=== PATIENT | female | born 1995 ===

== ENCOUNTER 2016-06-06 17:13 | Emergency (ER) | payer MEDICAID ==
[2016-06-06 17:23] VITALS: RESP 16; TEMP 98.1
--- NOTE | 2016-06-06 17:30 | ED PDOC ---
"Arrival/HPI - General Chief Complaint: Female Genitourinary Time Seen by Provider: 06/06/16 17:21 Historian: Patient - History of Present Illness Narrative History of Present Illness (Text): 06/06/16 17:30 This 21 yo female, Gravid , presents to this ED c/o vaginal bleeding x 3 days ago. Patient stated she had missed her period last month. She has a positive test x 2 weeks ago. Patient admits having a mild vaginal bleeding which last for 2 days. Patient denies vaginal bleeding today. Patient also denies pelvic pain, vaginal discharge, sob, cp, abdominal pain, trauma, n/v, or dizziness. Time/Duration: Other (See HPI) Context: Home Past Medical History - Provider Review Nursing Documentation Reviewed: Yes - Infectious Disease Hx of Infectious Diseases: None - Reproductive Menopause: No - Psychiatric Hx Substance Use: No - Anesthesia Hx Anesthesia: No Family/Social History - Physician Review Nursing Documentation Reviewed: Yes Family/Social History: No Known Family HX Smoking Status: Unknown If Ever Smoked Hx Alcohol Use: No Hx Substance Use: No Allergies/Home Meds Allergies/Adverse Reactions: Allergies jere Allergy (Verified 02/26/16 13:57) RASH mushroom Allergy (Verified 02/26/16 13:57) RASH Review of Systems - Review of Systems Constitutional: Normal. absent: Fatigue, Weight Change, Fevers Eyes: Normal ENT: Normal Respiratory: Normal Cardiovascular: Normal Gastrointestinal: Normal Genitourinary Female: Vaginal Bleeding, Other (See HPI). absent: Dysuria, Frequency, Hematuria, Vaginal Discharge Musculoskeletal: Normal Skin: Normal Neurological: Normal Endocrine: Normal Hemo/Lymphatic: Normal Psychiatric: Normal Physical Exam Vital Signs Temp Pulse Resp BP Pulse Ox 06/06/16 20:28 85 16 110/65 100 06/06/16 19:14 81 16 106/55 L 100 06/06/16 17:18 98.1 F 102 H 16 117/82 99 Temperature: Afebrile Blood Pressure: Normal Pulse: Regular Respiratory Rate: Tachypneic Appearance: Positive for: Well-Appearing, Non-Toxic, Comfortable Pain Distress: None Mental Status: Positive for: Alert and Oriented X 3 - Systems Exam Head: Present: Atraumatic, Normocephalic Pupils: Present: PERRL Extroacular Muscles: Present: EOMI Conjunctiva: Present: Normal Mouth: Present: Moist Mucous Membranes Neck: Present: Normal Range of Motion. No: Meningeal Signs Respiratory/Chest: Present: Clear to Auscultation, Good Air Exchange. No: Respiratory Distress, Accessory Muscle Use, Rales, Retracting, Rhonchi Cardiovascular: Present: Regular Rate and Rhythm, Normal S1, S2. No: Murmurs Abdomen: Present: Normal Bowel Sounds. No: Tenderness, Distention, Peritoneal Signs, Guarding Back: Present: Normal Inspection. No: CVA Tenderness, Midline Tenderness Upper Extremity: Present: Normal Inspection, Normal ROM, Neurovascularly Intact , Capillary Refill < 2s. No: Cyanosis, Edema Lower Extremity: Present: Normal Inspection, NORMAL PULSES, Normal ROM, Neurovascularly Intact, Capillary Refill < 2 s. No: Edema, CALF TENDERNESS Neurological: Present: GCS=15, CN II-XII Intact, Speech Normal, Motor Func Grossly Intact, Normal Sensory Function, Normal Cerebellar Funct, Norm Deep Tendon Reflexes Skin: Present: Warm, Dry, Normal Color. No: Rashes Psychiatric: Present: Alert, Oriented x 3 Medical Decision Making ED Course and Treatment: 06/06/16 20:16 Re-evaluation. Patient feels better. Discussed results and plan with patient who expresses understanding. All questions answered and there is agreement with the plan to discharge home with instructions. Patient stable for discharge. Return if symptoms persist or worsen. Abdomen is soft, nt/nd. Blood type is O positive. Patient was recommended to f /u Dr. Ward, [employer] for repeat Beta Quant in 2 days. I spoke with Lorie Sandoval [employer], who stated patient has an appointment to see her Next week, and she will need to see her then. She said if blood type is negative, patient may nee Rhogam, otherwise, she could be d/c home. Re-evaluation Time: 20:20 Reassessment Condition: Re-examined, Improved - Lab Interpretations Lab Results: 06/06/16 15:45 06/06/16 15:45 Lab Results 06/06/16 19:45: Urine HCG, Qual Negative 06/06/16 15:45: WBC 8.0, RBC 4.40, Hgb 14.7, Hct 41.9, MCV 95.2, MCH 33.4, MCHC 35.1, RDW 12.0, Plt Count 277, MPV 10.1, Gran % 73.5 H, Lymph % (Auto) 19.3 L, [place] % (Auto) 6.6 H, Eos % (Auto) 0.2 L, Baso % (Auto) 0.4, Gran # 5.90, Lymph # 1.6, [place] # 0.5, Eos # 0.0, Baso # 0.03, Sodium 139, Potassium 3.6, Chloride 102, Carbon Dioxide 26, Anion Gap 15, BUN 9, Creatinine 0.6, Est GFR ( Amer) > 60, Est GFR (Non-Af Amer) > 60, Random Glucose 92, Calcium 9.6, Total Bilirubin 0.5, AST 28, ALT 26, Alkaline Phosphatase 60, Total Protein 8.3, Albumin 4.7, Globulin 3.5, Albumin/Globulin Ratio 1.3, Beta HCG, Quant 11.73 H, Blood Type O POSITIVE, Antibody Screen Negative, BBK History Checked No verified bt 06/06/16 15:36: Urine Color Yellow, Urine Appearance Sl cloudy, Urine pH 6.0, Ur Specific Leon[place] 1.025, Urine Protein Negative, Urine Glucose (UA) Negative, Urine Ketones 15 H, Urine Blood Small H, Urine Nitrate Negative, Urine Bilirubin Negative, Urine Urobilinogen 0.2, Ur Leukocyte Esterase Negative, Urine RBC 0 - 2, Urine WBC 0 - 2, Ur Epithelial Cells 1 - 3, Urine Bacteria Few I have reviewed the lab results: Yes Interpretation: No clinic. lab abnormalty - RAD Interpretation Narrative RAD Interpretations (Text): 06/06/16 19:23 [facility] (Former[facility]) Preliminary Radiology Report with Addendum Call: [phone] assistance Online chat: [email or web address] Patient Name: JORGE TORRES FINDINGS: Uterus: Uterus measures approximate 7.1 x 3.9 x 4.9 cm. Endometrium is not identified. No intrauterine gestation is identified. Left ovary: Ovary measures approximately 3.8 x 2.3 x 3.4 cm. There is expected blood flow on Doppler imaging. There is a small exophytic area suggestive of a small cyst Right ovary: Right ovary measures approximately 3.5 x 2 x 2.9 cm.There is expected blood flow on Doppler imaging JORGE TORRES | Preliminary Radiology Report Page 2 of 3 IMPRESSION: No intrauterine or ectopic gestation identified . EXAM: US , Transvaginal There are no prior studies for comparison. FINDINGS: Uterus: Uterus measures approximately 7 x 3 x 5 cm. Endometrium measures approximately 4.6 mm in width. There is trace fluid in the endometrial canal. There is no intrauterine gestation. Cervix is closed. Right ovary: Right ovary measures approximately 3.34 x 1.71 x 3.22 cm. There are multiple small follicles. There is expected blood flow on Doppler imaging Left ovary: Left ovary measures approximately 3.98 x 2.19 x 2.93 cm. There is a dominant follicle in left ovary.There is expected blood flow on Doppler imaging IMPRESSION: No intrauterine or ectopic gestation Correlation with serial beta-hCG levels advised to Radiology Orders: 06/06/16 17:41 OB TRANSVAGINAL [US] Stat Disposition/Present on Arrival - Present on Arrival Any Indicators Present on Arrival: No History of DVT/PE: No History of Uncontrolled Diabetes: No Urinary Catheter: No History of Decub. Ulcer: No History Surgical Site Infection Following: None - Disposition Have Diagnosis and Disposition been Completed?: Yes Diagnosis: Vaginal bleeding before 22 weeks gestation Disposition: HOME/ ROUTINE Disposition Time: 20:19 Patient Plan: Discharge Condition: GOOD Discharge Instructions (ExitCare): First Trimester Vaginal Bleed (ED) Additional Instructions: Call Dr. Ward [employer] doctor office tomorrow for follow up visit. Dr. Ward Wants to see you next week. Make sure to have repeat blood test as instructed by doctor. Return to emergency if symptoms worsen. Prescriptions: Cmb#95/Iron/FA/Dha [ + Dha Combo Pack] 1 each PO DAILY #1 combo..pkg Referrals: Jens Carr MD [Primary Care Provider] - Follow up with primary Wanda Ward MD [Medical Doctor] - Follow up with primary Forms: WORK NOTE"
[2016-06-06 17:54] LABS: URINE BILIRUBIN NEGATIVE (NEGATIVE); URINE BLOOD SMALL (NEGATIVE); URINE GLUCOSE (UA) NEGATIVE (NEGATIVE); URINE KETONE 15 mg/dL (NEGATIVE); URINE LEUKOCYTE ESTERASE NEGATIVE Leu/uL (NEGATIVE); URINE PROTEIN NEGATIVE mg/dL (<30 mg/dL); URINE UROBILINOGEN 0.2 E.U./dL (<1 E.U./dL)
[2016-06-06 18:03] LABS: URINE APPEARANCE SL CLOUDY (CLEAR); URINE COLOR YELLOW (YELLOW)
[2016-06-06 18:12] LABS: URINE BACTERIA FEW (NEG); URINE RBC 0 - 2 /hpf (0-2); URINE WBC 0 - 2 /hpf (0-6)
[2016-06-06 18:26] LABS: ADD MANUAL DIFF? NO
[2016-06-06 18:37] LABS: ALB/GLOB RATIO 1.3 (1.1-1.8); ALKALINE PHOSPHATASE 60 U/L (38-133); ALT/SGPT 26 U/L (7-56); AST/SGOT 28 U/L (15-39); BILIRUBIN,TOTAL 0.5 mg/dL (0.2-1.3); BLOOD UREA NITROGEN 9 mg/dL (7-21); CALCIUM 9.6 mg/dL (8.4-10.5); CARBON DIOXIDE 26 mmol/L (21-33); CHLORIDE 102 mmol/L (98-107); GFR AFRICAN-AMERICAN > 60; GLUCOSE,RANDOM 92 mg/dL (70-110); POTASSIUM 3.6 mmol/L (3.6-5.0); SODIUM 139 mmol/L (132-148); TOTAL PROTEIN 8.3 g/dL (5.8-8.3)
[2016-06-06 18:48] LABS: BASO # 0.03 K/mm3 (0.0-2.0); BASO % 0.4 % (0.0-3.0); EOS % 0.2 % (1.5-5.0); GRAN % 73.5 % (50.0-68.0); HEMATOCRIT 41.9 % (36.0-48.0); LYMPH # 1.6 (1.2-3.4); LYMPH % 19.3 % (22.0-35.0); MEAN CELL VOLUME 95.2 fL (80.0-105.0); MEAN CORPUSCULAR HEMOGLOBIN 33.4 pg (25.0-35.0); MEAN CORPUSCULAR HGB CONC 35.1 g/dl (31.0-37.0); MEAN PLATELET VOLUME 10.1 fl (7.0-11.0); MONO # 0.5 (0.1-0.6); MONO % 6.6 % (1.0-6.0); PLATELET COUNT 277 10^3/uL (120.0-450.0)
[2016-06-06 20:12] VITALS: O2SAT 100
[2016-06-06 20:29] VITALS: BP 110/65; PULSE 85
--- NOTE | 2016-06-07 08:33 | US ---
Indication: Vaginal bleeding Comparison: None available. Technique: Transvaginal pelvic ultrasound. Findings: The uterus measures approximately 7.1 x 3.9 x 4.9 cm. Anteverted. Endometrial thickness measures approximately 0.3 cm. Trace fluid within the endometrial canal. No evidence of intrauterine gestational sac. The right ovary measures 3.2 x 1.7 x 3.3 cm. The left ovary measures 4.0 x 2.2 x 2.9 cm. 1.2 x 1.4 x 1.5 cm left ovarian follicle/cyst. Blood flow Flow was demonstrated to both ovaries. Impression: No evidence of intrauterine gestational sac. If indeed the patient is based on serum beta HCG values, the sonographic findings represent either: Very early IUP; embryonic demise; ectopic gestation. Follow-up with serial quantitative serum beta HCG measurements and post OBGYN follow-up is mandatory, since ectopic gestation cannot be excluded based only on sonographic findings. Preliminary impression was provided by virtual radiologic.
== END 2016-06-06 20:30 | disposition home or self-care (01) ==
LOC: ED 17:13
DX: O46.90 Antepartum hemorrhage, unspecified, unspecified trimester (principal); Z3A.00 Weeks of gestation of pregnancy not specified

== ENCOUNTER 2017-09-20 23:10 | Emergency (ER) | payer MEDICAID ==
--- NOTE | 2017-09-21 00:06 | ED PDOC ---
Arrival/HPI - General Chief Complaint: Female Genitourinary Time Seen by Provider: 09/20/17 23:55 Historian: Patient - History of Present Illness Narrative History of Present Illness (Text): 09/21/17 00:002 22 year old female, with no significant past medical history, presents complaining of vaginal bleeding and abdominal cramping tonight. Patient states her last menstrual period was 08/19/17. She reports last week she had a positive test and she checked again tonight and it was negative. Patient reports she is wearing a pad and sees small clots. This is patient's first . Patient denies any fever, chills, chest pain, shortness of breath, nausea, vomiting, diarrhea, back pain, neck pain, headache, dizziness, or any other complaints. Symptom Onset: Sudden Symptom Course: Unchanged Activities at Onset: Light Context: Home Past Medical History - Provider Review Nursing Documentation Reviewed: Yes - Infectious Disease Hx of Infectious Diseases: None - Psychiatric Hx Substance Use: No - Anesthesia Hx Anesthesia: No Family/Social History - Physician Review Nursing Documentation Reviewed: Yes Family/Social History: No Known Family HX Smoking Status: Unknown If Ever Smoked Hx Alcohol Use: No Hx Substance Use: No Allergies/Home Meds Allergies/Adverse Reactions: Allergies jere Allergy (Verified 02/26/16 13:57) RASH mushroom Allergy (Verified 02/26/16 13:57) RASH Review of Systems - Physician Review All systems were reviewed & negative as marked: Yes - Review of Systems Constitutional: absent: Fevers, Other (Chills) Respiratory: absent: SOB Cardiovascular: absent: Chest Pain Gastrointestinal: Abdominal Pain (Cramping). absent: Diarrhea, Nausea, Vomiting Genitourinary Female: Vaginal Bleeding. absent: Dysuria, Frequency, Hematuria Musculoskeletal: absent: Back Pain, Neck Pain Neurological: absent: Headache, Dizziness Physical Exam Vital Signs Reviewed: Yes Vital Signs Temp Pulse Resp BP Pulse Ox 09/21/17 02:53 80 16 111/67 98 09/20/17 23:35 98.3 F 93 H 17 114/68 100 Temperature: Afebrile Blood Pressure: Normal Pulse: Regular Respiratory Rate: Normal Appearance: Positive for: Well-Appearing, Non-Toxic, Comfortable Pain Distress: None Mental Status: Positive for: Alert and Oriented X 3 - Systems Exam Head: Present: Atraumatic, Normocephalic Pupils: Present: PERRL Extroacular Muscles: Present: EOMI Conjunctiva: Present: Normal Mouth: Present: Moist Mucous Membranes Neck: Present: Normal Range of Motion Respiratory/Chest: Present: Clear to Auscultation, Good Air Exchange. No: Respiratory Distress, Accessory Muscle Use Cardiovascular: Present: Regular Rate and Rhythm, Normal S1, S2. No: Murmurs Abdomen: No: Tenderness, Distention, Peritoneal Signs Back: Present: Normal Inspection Upper Extremity: Present: Normal Inspection. No: Cyanosis, Edema Lower Extremity: Present: Normal Inspection. No: Edema Neurological: Present: GCS=15, CN II-XII Intact, Speech Normal Skin: Present: Warm, Dry, Normal Color. No: Rashes Psychiatric: Present: Alert, Oriented x 3, Normal Insight, Normal Concentration Medical Decision Making ED Course and Treatment: 09/21/17 00:01 Impression: 22 year old female presents complaining of abdominal cramping and vaginal bleeding that began tonight. Patient states she had a positive test last week and tonight it shows that its negative. Plan: -- Labs -- Urine Culture -- Urine Test -- Urinalysis -- Transvaginal US -- Reassess and disposition Prior Visits: Notes and results from previous visits were reviewed. Patient was last seen in the emergency department on 06/06/16 presents complaining of vaginal bleeding for 4 days and reports positive test 2 weeks ago. Patient was discharge. Progress Notes: EXAM: US Pelvis, Transvaginal Dictated and Authenticated by: Gregor Johnson MD 09/21/2017 3:20 AM Eastern Time IMPRESSION: 1. No intrauterine or ectopic . 2. Followup hCG level is recommended to differentiate early intrauterine gestation versus miscarriage versus currently occult ectopic . 09/21/17 03:35 On reevaluation the patient feels better and is in no acute distress. I have discussed the results and plan with the patient, who expresses understanding. Patient given the opportunity to ask question, all questions were answered and there is agreement with the plan to discharge the patient home. Patient is stable for discharge. Patient was instructed to follow up with physician or return if symptoms persist/worsen or new concerning symptoms arise. - Lab Interpretations Lab Results: 09/21/17 00:00 09/21/17 00:00 Lab Results 09/21/17 00:00: Beta HCG, Quant < 2.39 09/21/17 00:00: Sodium 145, Potassium 3.7, Chloride 104, Carbon Dioxide 26, Anion Gap 19, BUN 16, Creatinine 0.6 L, Est GFR ( Amer) > 60, Est GFR ( Non-Af Amer) > 60, Random Glucose 100, Calcium 9.3, Total Bilirubin 0.3, AST 24 , ALT 16, Alkaline Phosphatase 73, Total Protein 8.2, Albumin 4.8, Globulin 3.4 , Albumin/Globulin Ratio 1.4 09/21/17 00:00: Urine Color Light yellow, Urine Appearance Clear, Urine pH 6.0, Ur Specific [place] >= 1.030, Urine Protein Trace H, Urine Glucose (UA) Negative , Urine Ketones Trace H, Urine Blood Large H, Urine Nitrate Negative, Urine Bilirubin Negative, Urine Urobilinogen 0.2, Ur Leukocyte Esterase Small H, Urine RBC 2 - 5, Urine WBC 25 - 30, Ur Epithelial Cells 3 - 4, Urine Bacteria Mod 09/21/17 00:00: WBC 8.5, RBC 4.28, Hgb 14.2, Hct 40.1, MCV 93.7, MCH 33.2, MCHC 35.4, RDW 12.3, Plt Count 272, MPV 10.2, Gran % 73.7 H, Lymph % (Auto) 19.1 L, [place] % (Auto) 6.3 H, Eos % (Auto) 0.8 L, Baso % (Auto) 0.1, Gran # 6.28, Lymph # (Auto) 1.6, [place] # (Auto) 0.5, Eos # (Auto) 0.1, Baso # (Auto) 0.01 I have reviewed the lab results: Yes - RAD Interpretation Radiology Orders: 09/21/17 00:02 TRANSVAGINAL [US] Stat - Medication Orders Current Medication Orders: Discontinued Medications Ceftriaxone Sodium (Rocephin 1 Gram Ivpb) 1 gm in 100 mls @ 200 mls/hr IVPB STAT STA PRN Reason: Protocol Stop: 09/21/17 02:55 Last Admin: 09/21/17 02:53 Dose: 200 mls/hr eMAR Start Stop Document 09/21/17 02:53 IT (Rec: 09/21/17 02:53 IT [id number]) Intravenous Solution Start Date 09/21/17 Start Time 02:53 - Scribe Statement The provider has reviewed the documentation as recorded by the Bronson Yusuf Provider Bronson Attestation: All medical record entries made by the Scribe were at my direction and personally dictated by me. I have reviewed the chart and agree that the record accurately reflects my personal performance of the history, physical exam, medical decision making, and the department course for this patient. I have also personally directed, reviewed, and agree with the discharge instructions and disposition. Disposition/Present on Arrival - Present on Arrival Any Indicators Present on Arrival: No History of DVT/PE: No History of Uncontrolled Diabetes: No Urinary Catheter: No History of Decub. Ulcer: No History Surgical Site Infection Following: None - Disposition Have Diagnosis and Disposition been Completed?: Yes Diagnosis: UTI (urinary tract infection), Menses painful, Complete Disposition: HOME/ ROUTINE Disposition Time: 03:27 Patient Plan: Discharge Patient Problems: Current Active Problems Problem Status Onset UTI (urinary tract infection) Acute Menses painful Acute Complete Acute Condition: GOOD Discharge Instructions (ExitCare): Urinary Tract Infections in Adults, Dealing With Miscarriage, Urinary Tract Infection, Adult (DC), Miscarriage (DC) Additional Instructions: [place]- Your blood test is negative and your ultrasound shows no . You have completed the miscarrage. Follow up with your doctors next week by phone. Off work til you can see your OB Physician. [place]- Dr. Nelson Romero Prescriptions: Cephalexin [Keflex] 500 mg PO QID #40 capsule Forms: [employer] (I[place]ic)
[2017-09-21 00:32] LABS: URINE BILIRUBIN NEGATIVE (NEGATIVE); URINE BLOOD LARGE (NEGATIVE); URINE GLUCOSE (UA) NEGATIVE (NEGATIVE); URINE LEUKOCYTE ESTERASE SMALL Leu/uL (NEGATIVE); URINE PROTEIN TRACE mg/dL (<30 mg/dL); URINE UROBILINOGEN 0.2 E.U./dL (<1 E.U./dL)
[2017-09-21 00:33] LABS: URINE APPEARANCE CLEAR (CLEAR); URINE COLOR LIGHT YELLOW (YELLOW)
[2017-09-21 00:36] LABS: BASO # 0.01 K/mm3 (0.0-2.0); BASO % 0.1 % (0.0-3.0); EOS # 0.1 (0.0-0.7); EOS % 0.8 % (1.5-5.0); GRAN # 6.28 (1.4-6.5); GRAN % 73.7 % (50.0-68.0); HEMOGLOBIN 14.2 g/dL (12.0-16.0); LYMPH # 1.6 (1.2-3.4); LYMPH % 19.1 % (22.0-35.0); MEAN CELL VOLUME 93.7 fl (80.0-105.0); MEAN CORPUSCULAR HEMOGLOBIN 33.2 pg (25.0-35.0); MEAN CORPUSCULAR HGB CONC 35.4 g/dl (31.0-37.0); MEAN PLATELET VOLUME 10.2 fl (7.0-11.0); MONO # 0.5 (0.1-0.6); MONO % 6.3 % (1.0-6.0); RBC 4.28 10^6/uL (3.5-6.1); RED CELL DISTRIBUTION WIDTH 12.3 % (11.5-14.5); WHITE BLOOD COUNT 8.5 10^3/ul (4.5-11.0)
[2017-09-21 00:39] LABS: ALB/GLOB RATIO 1.4 (1.1-1.8); ALBUMIN 4.8 g/dL (3.0-4.8); ALT/SGPT 16 U/L (7-56); AST/SGOT 24 U/L (14-36); BLOOD UREA NITROGEN 16 mg/dL (7-21); CALCIUM 9.3 mg/dL (8.4-10.5); GFR AFRICAN-AMERICAN > 60; GFR NON-AFRICAN AMERICAN > 60
[2017-09-21 01:38] LABS: URINE BACTERIA MOD (NEG); URINE WBC 25 - 30 /hpf (0-6)
[2017-09-21] MEDS ORDERED: cefTRIAXone 1 gm 1 GM/100 ML BAG IVPB STA (02:26)
[2017-09-21 02:53] VITALS: RESP 16
[2017-09-21 03:39] VITALS: BP 112/78; PULSE 82; TEMP 98.2; O2SAT 99
--- NOTE | 2017-09-21 10:33 | US ---
Date of service: 09/21/2017 HISTORY: Possible Miscarriage, Test was positive COMPARISON: None available. TECHNIQUE: Transvaginal pelvic ultrasound was performed. FINDINGS: UTERUS: Measures 6.3 x 3.1 x 5.2 cm. Anteverted, normal in size and appearance. No fibroid or other mass lesion seen. ENDOMETRIUM: Measures 3.9 mm in diameter. Central endometrial complex is normal in appearance. CERVIX: No cervical abnormality identified. RIGHT OVARY: Measures 3.3 x 2.4 x 2.6 cm. No solid mass. Normal flow. Are follicles. LEFT OVARY: Measures 2.8 x 2.6 x 3.1 cm. No solid mass. Normal flow. Are follicles. FREE FLUID: No significant free fluid noted. OTHER FINDINGS: None. IMPRESSION: No evidence of intrauterine or ectopic . Follow-up beta HCG level is recommended to differentiate early intrauterine gestation versus miscarriage versus currently occult ectopic . A preliminary report was provided by [employer]
== END 2017-09-21 03:42 | disposition home or self-care (01) ==
LOC: ED 23:10
DX: O23.40 Unspecified infection of urinary tract in pregnancy, unspecified trimester (principal); O03.9 Complete or unspecified spontaneous abortion without complication; Z3A.00 Weeks of gestation of pregnancy not specified
CPT/HCPCS: 76830; 80053; 81001; 81025; 84702; 85025; 87086; 96374; 99283; J0696

== ENCOUNTER 2017-09-25 11:00 | Emergency (ER) | payer MEDICAID ==
--- NOTE | 2017-09-25 12:01 | ED PDOC ---
Arrival/HPI - General Time Seen by Provider: 09/25/17 11:57 Historian: Patient - History of Present Illness Narrative History of Present Illness (Text): 09/25/17 11:58 22 year old female, whose past medical history includes A2, who presents to the ED complaining of LLQ abdominal pain. Patient was here 6 days ago and was diagnosed with a miscarriage and UTI. Patient was discharged home with antibiotics. Patient notes yesterday the vaginal bleeding stopped but the abdominal pain continued. Patient denies any fever, nausea, vomiting, back pain , neck pain, SOB, cough, or any other complaints. Time/Duration: < week (6 days) Symptom Onset: Gradual Symptom Course: Unchanged Activities at Onset: Light Context: Home Past Medical History - Provider Review Nursing Documentation Reviewed: Yes - Infectious Disease Hx of Infectious Diseases: None - Psychiatric Hx Substance Use: No - Anesthesia Hx Anesthesia: No Family/Social History - Physician Review Nursing Documentation Reviewed: Yes Family/Social History: Unknown Family HX Smoking Status: Unknown If Ever Smoked Hx Alcohol Use: No Hx Substance Use: No Allergies/Home Meds Allergies/Adverse Reactions: Allergies jere Allergy (Verified 09/25/17 12:06) RASH mushroom Allergy (Verified 09/25/17 12:06) RASH Review of Systems - Physician Review All systems were reviewed & negative as marked: Yes - Review of Systems Constitutional: Normal Eyes: Normal ENT: Normal Respiratory: Normal. absent: SOB, Cough Cardiovascular: Normal. absent: Chest Pain Gastrointestinal: Abdominal Pain (LLQ pain). absent: Diarrhea, Nausea, Vomiting Genitourinary Female: Normal. absent: Dysuria, Frequency Musculoskeletal: Normal. absent: Back Pain, Neck Pain Skin: Normal. absent: Rash Neurological: Normal. absent: Headache, Dizziness Endocrine: Normal Hemo/Lymphatic: Normal Psychiatric: Normal Physical Exam Vital Signs Reviewed: Yes Vital Signs Temp Pulse Resp BP Pulse Ox 09/25/17 12:09 97.9 F 76 18 118/58 L 98 Temperature: Afebrile Blood Pressure: Normal Pulse: Regular Respiratory Rate: Normal Appearance: Positive for: Well-Appearing, Non-Toxic, Comfortable Pain Distress: None Mental Status: Positive for: Alert and Oriented X 3 - Systems Exam Head: Present: Atraumatic, Normocephalic Pupils: Present: PERRL Extroacular Muscles: Present: EOMI Conjunctiva: Present: Normal Mouth: Present: Moist Mucous Membranes Neck: Present: Normal Range of Motion Respiratory/Chest: Present: Clear to Auscultation, Good Air Exchange. No: Respiratory Distress, Accessory Muscle Use Cardiovascular: Present: Regular Rate and Rhythm, Normal S1, S2. No: Murmurs Abdomen: Present: Tenderness (LLQ tenderness; suprapubic region tenderness). No : Distention, Peritoneal Signs Back: Present: Normal Inspection Upper Extremity: Present: Normal Inspection. No: Cyanosis, Edema Lower Extremity: Present: Normal Inspection. No: Edema Neurological: Present: GCS=15, CN II-XII Intact, Speech Normal Skin: Present: Warm, Dry, Normal Color. No: Rashes Psychiatric: Present: Alert, Oriented x 3, Normal Insight, Normal Concentration Medical Decision Making ED Course and Treatment: 09/25/17 12:03 Impression: 22 year old female presents to the ED complaining of LLQ abdominal pain. Plan: -- Labs -- Transvaginal US -- Tylenol Progress Notes: 09/25/17 14:51 Transvaginal US reviewed, shows: IMPRESSION: Unremarkable examination. No evidence retained products of conception. - Lab Interpretations Lab Results: 09/25/17 13:40 09/25/17 13:40 Lab Results 09/25/17 13:40: Beta HCG, Quant < 2.39 09/25/17 13:40: Sodium 143, Potassium 3.9, Chloride 103, Carbon Dioxide 24, Anion Gap 20, BUN 13, Creatinine 0.6 L, Est GFR ( Amer) > 60, Est GFR ( Non-Af Amer) > 60, Random Glucose 78, Calcium 9.8, Total Bilirubin 0.6, AST 22, ALT 15, Alkaline Phosphatase 68, Total Protein 8.4 H, Albumin 5.1 H, Globulin 3.3, Albumin/Globulin Ratio 1.5 09/25/17 13:40: WBC 6.8, RBC 4.26, Hgb 13.8, Hct 39.8, MCV 93.4, MCH 32.4, MCHC 34.7, RDW 12.2, Plt Count 250, MPV 10.5, Gran % 75.9 H, Lymph % (Auto) 19.5 L, [place] % (Auto) 4.5, Eos % (Auto) 0.0 L, Baso % (Auto) 0.1, Gran # 5.18, Lymph # ( Auto) 1.3, [place] # (Auto) 0.3, Eos # (Auto) 0.0, Baso # (Auto) 0.01 - RAD Interpretation Radiology Orders: 09/25/17 12:08 TRANSVAGINAL [US] Urgent - Medication Orders Current Medication Orders: Ibuprofen (Motrin Tab) 600 mg PO STAT STA Stop: 09/25/17 15:15 - Scribe Statement The provider has reviewed the documentation as recorded by the Scribe Carrol Taveras All medical record entries made by the Scribe were at my direction and personally dictated by me. I have reviewed the chart and agree that the record accurately reflects my personal performance of the history, physical exam, medical decision making, and the department course for this patient. I have also personally directed, reviewed, and agree with the discharge instructions and disposition. Disposition/Present on Arrival - Present on Arrival Any Indicators Present on Arrival: No History of DVT/PE: No History of Uncontrolled Diabetes: No Urinary Catheter: No History Surgical Site Infection Following: None - Disposition Have Diagnosis and Disposition been Completed?: Yes Diagnosis: Pelvic pain Disposition: HOME/ ROUTINE Disposition Time: 15:15 Patient Plan: Discharge Condition: GOOD Discharge Instructions (ExitCare): Acute Pelvic Pain Prescriptions: Ibuprofen [Motrin] 600 mg PO Q6 #20 tab Referrals: Javon Glynn MD [Staff Provider] - Follow up with primary Forms: [employer] ([place] Islander)
[2017-09-25 12:06] VITALS: BMI 23.2
[2017-09-25 12:26] VITALS: RESP 18
[2017-09-25 13:46] LABS: BASO # 0.01 K/mm3 (0.0-2.0); BASO % 0.1 % (0.0-3.0); GRAN # 5.18 (1.4-6.5); GRAN % 75.9 % (50.0-68.0); HEMOGLOBIN 13.8 g/dL (12.0-16.0); LYMPH # 1.3 (1.2-3.4); LYMPH % 19.5 % (22.0-35.0); MEAN CELL VOLUME 93.4 fl (80.0-105.0); MEAN CORPUSCULAR HEMOGLOBIN 32.4 pg (25.0-35.0); MEAN CORPUSCULAR HGB CONC 34.7 g/dl (31.0-37.0); MEAN PLATELET VOLUME 10.5 fl (7.0-11.0); MONO # 0.3 (0.1-0.6); MONO % 4.5 % (1.0-6.0); RBC 4.26 10^6/uL (3.5-6.1); RED CELL DISTRIBUTION WIDTH 12.2 % (11.5-14.5); WHITE BLOOD COUNT 6.8 10^3/ul (4.5-11.0)
[2017-09-25 14:00] LABS: BLOOD UREA NITROGEN 13 mg/dL (7-21); CALCIUM 9.8 mg/dL (8.4-10.5); GFR AFRICAN-AMERICAN > 60; GFR NON-AFRICAN AMERICAN > 60
[2017-09-25 14:01] LABS: ALB/GLOB RATIO 1.5 (1.1-1.8); ALBUMIN 5.1 g/dL (3.0-4.8); ALT/SGPT 15 U/L (7-56); AST/SGOT 22 U/L (14-36)
--- NOTE | 2017-09-25 14:49 | US ---
Date of service: 09/25/2017 HISTORY: possible retained product COMPARISON: None available. TECHNIQUE: Transabdominal and transvaginal FINDINGS: UTERUS: Measures 6.5 x 2.3 x 3.6 cm. Normal in size and appearance. No fibroid or other mass lesion seen. ENDOMETRIUM: Measures 3 mm in diameter. No evidence of retained products of conception. No endometrial fluid or soft tissue. CERVIX: No cervical abnormality identified. RIGHT OVARY: Measures 2.9 x 1.6 x 2.6 cm. No solid mass. Normal flow. LEFT OVARY: Measures 3.9 x 3.1 x 3.4 cm. No solid mass. Normal flow. Physiologic 1.6 cm cyst FREE FLUID: No significant free fluid noted. OTHER FINDINGS: None. IMPRESSION: Unremarkable examination. No evidence retained products of conception.
[2017-09-25 15:29] VITALS: BP 120/77; PULSE 77; TEMP 98; O2SAT 99
== END 2017-09-25 15:29 | disposition home or self-care (01) ==
LOC: ED 11:00
DX: R10.2 Pelvic and perineal pain (principal)